=== PATIENT | male | born 1970 ===

== ENCOUNTER 2017-04-28 12:44 | Emergency (ER) | payer SELFPAY ==
[~2017-04-28] VITALS: Ht 175.3 cm; Wt 90.9 kg
[2017-04-28 13:00] VITALS: BP 143/100
[2017-04-28] MEDS ORDERED: CARV3 PO (13:01)
[2017-04-28] MEDS ORDERED: CLON.2 PO (13:01)
[2017-04-28] MEDS ORDERED: NIFE10 PO (13:01)
== END 2017-04-28 14:55 | disposition left against medical advice (07) ==
LOC: EMS 12:47
DX: Z53.21 Procedure and treatment not carried out due to patient leaving prior to being seen by health care provider (principal)